=== PATIENT | male | born 1955 | race Caucasian/White ===

== ENCOUNTER 2023-05-26 13:44 | Outpatient (OUT) | payer MEDICARE, SELFPAY ==
[2023-05-26 16:26] LABS: INR 1.09; Partial Thromboplastin Time 32.7 sec (22.3-36.2); Prothrombin Time 11.5 sec (9.0-11.6)
== END 2023-05-26 13:45 | disposition home or self-care (01) ==
LOC: PST 13:49
PROVIDERS: PCP Family Medicine; Visit Provider Urology
DX: Z01.812 Encounter for preprocedural laboratory examination (principal); Z01.810 Encounter for preprocedural cardiovascular examination; N20.1 Calculus of ureter; I10 Essential (primary) hypertension; Z79.01 Long term (current) use of anticoagulants; I25.2 Old myocardial infarction
CPT/HCPCS: 80048; 85610; 85730

== ENCOUNTER 2023-05-27 10:38 | Day surgery (SDC) | payer MEDICARE, SELFPAY ==
[2023-05-26 14:38] VITALS: BP 109/66; PULSE 55; RESP 16; TEMP 36.4; O2SAT 95; BMI 34.9
[2023-05-27 11:06] VITALS: BMI 34.2
== END 2023-05-27 11:40 | disposition home or self-care (01) ==
PROVIDERS: PCP Family Medicine; Visit Provider Urology
PROC: (CPT 52356; principal; 2023-05-27 12:30)
DX: N20.1 Calculus of ureter (principal); Z53.8 Procedure and treatment not carried out for other reasons; I10 Essential (primary) hypertension; M19.90 Unspecified osteoarthritis, unspecified site; N40.1 Benign prostatic hyperplasia with lower urinary tract symptoms; I25.2 Old myocardial infarction; Z79.899 Other long term (current) drug therapy; Z79.82 Long term (current) use of aspirin; I25.10 Atherosclerotic heart disease of native coronary artery without angina pectoris; E66.9 Obesity, unspecified; Z68.37 Body mass index [BMI] 37.0-37.9, adult; E78.5 Hyperlipidemia, unspecified
CPT/HCPCS: 52356; 36415

== ENCOUNTER 2023-06-07 13:00 | Outpatient (OUT) | payer MEDICARE, SELFPAY | END 2023-06-07 16:24 | disposition home or self-care (01) | LOC: PST 06-08 13:21 | PROVIDERS: PCP Family Medicine; Visit Provider Urology | DX: Z01.818 Encounter for other preprocedural examination (principal); N20.1 Calculus of ureter; I10 Essential (primary) hypertension; Z79.01 Long term (current) use of anticoagulants ==

== ENCOUNTER 2023-06-10 12:12 | Day surgery (SDC) | payer MEDICARE, SELFPAY ==
[2023-06-10] VITALS (13 sets, daily range): BP systolic 115–162; BP diastolic 78–94; PULSE 60–92; RESP 13–20; TEMP 36.5–37.3; O2SAT 92–96; BMI 34.3
[2023-06-10] MEDS: LACTATED RINGER'S SOLUTION 1,000 ML 50 ML IV (12:37)
[2023-06-10] MEDS: CEFAZOLIN SODIUM/DEXTROSE,ISO 1 GM/50 ML IV.SOLN IV (14:53)
--- NOTE | 2023-06-10 15:49 | P.URON_ITS ---
Urology Surgery Operative Note Operative Note Procedure Date: 06/10/23 Time Out Performed: yes Pre-op Diagnosis: distal right ureteral calculus retained Post-op Diagnosis: same as pre-op Procedures performed: #1. Cystoscopy. #2. Right rigid ureteral dilation. #3. Right ureteroscopy. #4. Holmium laser lithotripsy of dense right ureteral calculus. #5. Stone basket extraction. #6. Placement of 6 Lebanese variable length right ureteral stent Anesthesia: General-LMA Primary Surgeon: Frank Mcarthur Complications: none Estimated blood loss (mL): 5 Findings: #1. Very dense stone. Specimens: right distal ureteral calculus fragments Indications for Procedures: this gentleman has a 6 mm distal right ureteral calculus that he has been unable to pass. He now presents for cystoscopy, rigid dilation, ureteroscopy and laser and right stent placement. He has signed an informed consent for these procedures after all the risks were explained. He did obtain formal cardiac clearance preoperatively due to his significant cardiac history. Detailed description of Procedure: The patient was brought to the operating room and placed on the operating room table in the supine position. SCDs were placed on the lower extremities and turned on and functioning during the entire case. Timeout was done by all parties in the room. We all agreed upon the patient's identification and the planned procedures for this patient. Genn. anesthesia was then administered. The patient was then repositioned into the modified dorsal lithotomy position. All pressure points were satisfactorily padded. Genitalia were sterilely prepped and draped in usual fashion.I then started by passing a 22 Lebanese Olympus cystoscope per urethra and into the bladder. The anterior urethra was normal. The prostatic urethra showed bilobar obstruction. Careful panendoscopy in the bladder showed no evidence of any tumors or stones. While using fluoroscopy I could see a stone in the distal right ureter region. I then passed a Glidewire through the scope and cannulated the right ureter. Initially, the wire buckled numerous times but eventually I got it proximal to the stone and up into the kidney. I then used an 8 and 10 Lebanese rigid dilator to dilate the distal ureter. I could not dilate fully because the stone would not move. I then removed the cystoscope and then passed a semirigid ureteroscope adjacent to the wire through the urethra into the bladder and into the right ureter. I was able to get right up to the stone. I then passed a 365 ? holmium laser fiber through the scope and made contact with the stone. I then began doing laser lithotripsy at 6 W continuously. The stone slowly fragmented. Once I fragmented it into multiple pieces I then passed a 0 tip nitinol basket. I engaged several pieces and dumped them in the base of the bladder. I went up-and-down the ureter removing ureteral fragments of stone until the right ureter was free of all stone. The scope was then removed. I then backloaded the cystoscope over the wire and passed it into the bladder. I then slid a 6 Lebanese variable length right ureteral stent over the wire up into the kidney and removed the wire. The stent had good curls in the kidney and in the bladder. I then used the Ludei evacuator to get all the stone pieces from the base of the bladder out and these were sent for stone analysis. The bladder was drained of its contents and the scope was then removed. He was then transferred to a [facility] bed and wheeled to PACU in stable condition. He'll be discharged to home later today with a prescription for Vesicare 10 mg daily #20 and Keflex 500 mg daily #21. We'll get his stent out in 2-3 weeks.
[2023-06-10] MEDS: SOLIFENACIN SUCCINATE 10 MG TABLET PO (15:56)
--- NOTE | 2023-06-10 16:10 | PC.NURSE ---
Patient denies pain and is eating and drinking veery well.
--- NOTE | 2023-06-10 16:33 | PC.NURSE ---
Patient ate crackers and cookies and drank water in phase 1. Patient also urinated as well. denies any pain.
[2023-06-18 15:13] LABS: Calcium Oxalate Dihydrate 30 % (.); Calcium Oxalate Monohydrate 70 % (.); Size 3x3 mm (.)
== END 2023-06-10 16:46 | disposition home or self-care (01) ==
PROVIDERS: PCP Family Medicine; Visit Provider Urology
PROC: (CPT 52356; principal; 2023-06-10 14:20)
DX: N20.1 Calculus of ureter (principal); N40.1 Benign prostatic hyperplasia with lower urinary tract symptoms; M19.90 Unspecified osteoarthritis, unspecified site; I25.2 Old myocardial infarction; E78.00 Pure hypercholesterolemia, unspecified; I10 Essential (primary) hypertension; I51.9 Heart disease, unspecified; Z79.82 Long term (current) use of aspirin; Z79.899 Other long term (current) drug therapy
CPT/HCPCS: 52356; 76000; 82365; 99999; C1874; J2704

== ENCOUNTER 2025-01-11 09:46 | Outpatient (OUT) | payer MEDICARE, SELFPAY ==
--- NOTE | 2025-01-11 09:56 | XR_ITS ---
[facility] [place] [id number] Patient Name: FREDDIE HERNANDEZ MRN: [id number] date: 1955 Sex: M Assigned Patient Location: [facility] Current Patient Location: [facility] Accession/Order Number: [id number] Exam Date: 01/11/2025 11:23 Report Date: 01/11/2025 11:25 At the request of: CINDY LAW MD Procedure: XR chest 2V PA AND LATERAL CHEST: CLINICAL HISTORY: Preoperative clearance for renal procedure the patient with kidney stones COMPARISON: None There is no focal parenchymal consolidation, effusion or pneumothorax. The cardiac, hilar and mediastinal silhouettes are within normal limits. There is no vascular congestion. The visualized bony thorax is intact. . There is slight dextroscoliotic curvature and endplate spurring. XR/XR chest 2V IMPRESSION: NO ACUTE CARDIOPULMONARY ABNORMALITY. Impression dictated by: Bernadine Arora M.D.01/11/2025 11:25 AM Dictation Location: [place] [address] Electronically authenticated by: [id number] Y Date: 01/11/2025 11:25
--- NOTE | 2025-01-11 09:56 | ECG_ITS ---
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 Measurements Intervals [place] Rate: 53 P: NE: QRS: 3 QRSD: 112 T: 7 QT: 441 QTc: 417 Interpretive Statements SINUS RHYTHM WITH OCCASIONAL VENTRICULAR PREMATURE COMPLEXES MODERATE INTRAVENTRICULAR CONDUCTION DELAY [110+ ms QRS DURATION] BORDERLINE ECG No previous ECG available for comparison Electronically Signed On 01-11-2025 20:26:32 EDT by VANESSA DENNISON M.D.
--- NOTE | 2025-01-11 10:39 | P.GSHP_ITS ---
History of Present Illness History of Present Illness Chief complaint: Left kidney stone Narrative: Patient presents for presurgical testing. Please see HPI from Dr. Mcarthur dated January 03, 2025. Review of Systems ROS Narrative Please see ROS from Dr. Mcarthur dated January 03, 2025. [facility] Medical History (Updated 01/11/25 @ 10:24 by Simin Guerra NP) PVC (premature ventricular contraction) ?I49.3 - Ventricular premature depolarization (ICD-10) Knee pain ?M25.569 - Pain in unspecified knee (ICD-10) Panic attacks ?F41.0 - Panic disorder [episodic paroxysmal anxiety] (ICD-10) MADHURI on CPAP ?G47.33 - Obstructive sleep apnea (adult) (pediatric) (ICD-10) CAD (coronary artery disease) ?I25.10 - Atherosclerotic heart disease of [place] coronary artery without angina pectoris (ICD-10) COVID-19 ?U07.1 - COVID-19 (ICD-10) Kidney stones ?N20.0 - Calculus of kidney (ICD-10) Back pain ?M54.9 - Dorsalgia, unspecified (ICD-10) Arthritis ?M19.90 - Unspecified osteoarthritis, unspecified site (ICD-10) Anxiety ?F41.9 - Anxiety disorder, unspecified (ICD-10) Sleep apnea ?G47.30 - Sleep apnea, unspecified (ICD-10) Transient ischemic attack ?G45.9 - Transient cerebral ischemic attack, unspecified (ICD-10) Ureteral stone (2022) ?N20.1 - Calculus of ureter (ICD-10) Seasonal allergies ?J30.2 - Other seasonal allergic rhinitis (ICD-10) Cataract ?H26.9 - Unspecified cataract (ICD-10) Hiatal hernia ?K44.9 - Diaphragmatic hernia without obstruction or gangrene (ICD-10) Myocardial infarction (1996) ?I21.9 - Acute myocardial infarction, unspecified (ICD-10) High cholesterol ?E78.00 - Pure hypercholesterolemia, unspecified (ICD-10) Surgical History (Updated 01/09/25 @ 10:39 by Simin Guerra NP) S/P cystoscopy with ureteral stent placement (06/10/23) ?Z96.0 - Presence of urogenital implants (ICD-10) History of arthroscopy of knee (2019) ?Z98.890 - Other specified postprocedural states (ICD-10) History of spinal surgery ?Z98.890 - Other specified postprocedural states (ICD-10) History of arthroplasty of knee ?Z96.659 - Presence of unspecified artificial knee joint (ICD-10) History of colonoscopy ?Z98.890 - Other specified postprocedural states (ICD-10) History of heart artery stent ?Z95.5 - Presence of coronary angioplasty implant and graft (ICD-10) Family History (Updated 06/10/23 @ 12:24 by Lucero Daniels) Other Family history of coronary artery disease Family history of emphysema Family history of hypertension Family history of myocardial infarction Family history of throat cancer Social History (Updated 05/27/23 @ 11:04 by Lucero Daniels) Within the past year, how often did you have a drink containing alcohol: monthly or less Smoking status: Never smoker Non-prescribed substance use: denies use Previous occupational history: RETIRED Highest level of school completed/degree received: Associate degree: occupational, technical, vocational program Meds Home Medications and Allergies Home Medications ?Medication ?Instructions ?Recorded ?Confirmed ?Type aspirin 81 mg capsule 162 mg PO DAILY 05/26/23 01/11/25 History celecoxib 200 mg capsule (Celebrex) 200 mg PO BID 05/26/23 01/11/25 History evolocumab 420 mg/3.5 mL 140 mg subcut .[id number] 05/26/23 01/11/25 History subcutaneous wearable injector (Repatha Pushtronex) omega-3 fatty acids 300 mg capsule 300 mg PO DAILY 05/26/23 01/11/25 History sertraline 50 mg tablet (Zoloft) 75 mg PO DAILY 05/26/23 01/11/25 History turmeric 400 mg capsule 400 mg PO DAILY 01/11/25 01/11/25 History Allergies Allergy/AdvReac Type Severity Reaction Status Date / Time No Known Drug Allergies Allergy Verified 01/11/25 10:10 Exam Narrative Exam Narrative: Constitutional: Awake, alert, comfortable, well-appearing, nontoxic, interactive, vital signs as charted Head: Normocephalic, atraumatic Neck: Supple, normal appearance, normal range of motion, no meningeal signs, no lymphadenopathy Respiratory: No respiratory distress, breath sounds clear Cardiovascular: Bradycardic rate, irregular rhythm Abdomen: Nontender, normal bowel sounds, soft, no CVA tenderness Musculoskeletal: Normal gait, no swelling or edema Skin: No rashes or induration, no lesions, only visible skin inspected Neuro: No neurological deficits, normal sensation Psychiatric: Oriented ?3, normal affect Assessment and Plan Assessment and Plan (1) Kidney stones: Plan Left ESWL scheduled with Dr. Mcarthur January 25, 2025.
[2025-01-11 10:55] LABS: Basophils Percent Auto 0.8 % (0.2-2.0); Eosinophils Absolute Auto 0.1 10^3/uL (0.0-0.7); Eosinophils Percent Auto 1.4 % (0.9-7.0); Hematocrit 46.9 % (42.0-54.0); Hemoglobin 16.4 g/dL (14.0-18.0); Immature Granulocytes Abs Auto 0.01 10^3/uL (0.00-0.03); Immature Granulocytes Pct Auto 0.2 % (0.0-0.5); Lymphocytes Absolute Auto 1.5 10^3/uL (1.2-3.8); Lymphocytes Percent Auto 29.5 % (20.5-60.0); Mean Corpuscular Hemoglobin 31.8 pg (25.9-34.0); Mean Corpuscular Volume 91.1 fL (80.0-94.0); Mean Platelet Volume 9.7 fL (9.5-13.5); Monocytes Absolute Auto 0.5 10^3/uL (0.3-0.8); Monocytes Percent Auto 9.6 % (1.7-12.0); Neutrophils Percent Auto 58.5 % (43.0-75.0); Platelet Count 163 10^3/uL (150-450); Red Blood Count 5.15 10^6/uL (4.70-6.10); Red Cell Distribution Width 12.7 % (11.0-15.0); White Blood Count 5.1 10^3/uL (4.0-11.0)
[2025-01-11 11:12] LABS: INR 1.12; Partial Thromboplastin Time 31.8 sec (22.3-36.2); Prothrombin Time 11.7 sec (9.0-11.6)
[2025-01-11 11:47] LABS: Anion Gap 13.7; BUN Creatinine Ratio 19.6; Calcium 8.9 mg/dL (8.5-10.1); Carbon Dioxide 25.9 mmol/L (21.0-32.0); Chloride 103 mmol/L (98-107); Estimated GFR (African America >60 (>=60 mL/min/1.73m^2); Estimated GFR (Non-African Ame >60 (>=60 mL/min/1.73m^2); Glucose 104 mg/dL (74-106); Potassium 4.6 mmol/L (3.5-5.1); Sodium 138 mmol/L (136-145)
== END 2025-01-11 09:47 | disposition home or self-care (01) ==
PROVIDERS: PCP Family Medicine; Visit Provider Urology
DX: Z01.810 Encounter for preprocedural cardiovascular examination (principal); Z01.812 Encounter for preprocedural laboratory examination; Z01.818 Encounter for other preprocedural examination; N20.0 Calculus of kidney
CPT/HCPCS: 71046; 80048; 85025; 85610; 85730; 93005; G0463

== ENCOUNTER 2025-01-25 06:40 | Day surgery (SDC) | payer MEDICARE, SELFPAY ==
[2025-01-11 10:35] VITALS: BP 154/69; PULSE 51; TEMP 36.2; O2SAT 96; BMI 35.7
[2025-01-25] VITALS (9 sets, daily range): BP systolic 138–167; BP diastolic 67–93; PULSE 46–61; TEMP 36.2; O2SAT 93–97; BMI 35.4
[2025-01-25] MEDS: LACTATED RINGER'S SOLUTION 1,000 ML 50 ML IV (07:40)
[2025-01-25] MEDS: CEFAZOLIN SODIUM 2 GM/50 ML D5W PREMIX IV (08:05)
--- NOTE | 2025-01-25 08:35 | PM.URSON ---
Urology Surgery Operative Note Operative Note Procedure Date: 01/25/25 Time Out Performed: yes Pre-op Diagnosis: Left nephrolithiasis Post-op Diagnosis: same as pre-op Procedures performed: 1. Left ESWL. Anesthesia: General-LMA Primary Surgeon: Frank Mcarthur Complications: None Estimated blood loss (mL): 0 Findings: Large left lower pole stone Specimens: None Drains: None Indications for Procedures: This gentleman has recurrent left nephrolithiasis. His stone is about a centimeter in size. He now presents for left ESWL. He has signed an informed consent after risks were explained. Some of these risks include bleeding, perinephric hematoma, infection and anesthesia to name a few. Detailed description of Procedure: The patient was brought to the Operating Room and placed on Siemens electromagnetic lithotripsy treatment table in the supine position. SCDs were placed on their lower extremities and turned on and functioning during the entire case. Timeout was done by all parties in the room. We all agreed upon the patient's identification and the planned procedures for this patient. General Anesthesia was then administered via LMA. Treatment head was then brought to the patient's correct side. While using flourscopy the left sided stone was identified and lined up into the crosshairs. We then began applying shocks. We started at power level 2.0 and increased to a maximum power level of 3.5. Intermittent fluoroscopy revealed fairly early fragmentation. We applied a total of 2000 shocks and had 100% fragmentation. The last fluoroscopic image revealed no evidence of any formed stone remaining. The procedure was terminated. He was then transferred to a [facility] bed and wheeled to PACU in stable condition.
--- NOTE | 2025-01-25 08:54 | PC.NURSE ---
ABRASION AND REDNESS NOTED ON LEFT FLANK AREA
== END 2025-01-25 10:16 | disposition home or self-care (01) ==
PROVIDERS: PCP Family Medicine; Visit Provider Urology
PROC: (CPT 50590; principal; 2025-01-25 08:00)
DX: N20.0 Calculus of kidney (principal); Z87.442 Personal history of urinary calculi; M19.90 Unspecified osteoarthritis, unspecified site; I25.2 Old myocardial infarction; N40.0 Benign prostatic hyperplasia without lower urinary tract symptoms; I25.10 Atherosclerotic heart disease of native coronary artery without angina pectoris; I10 Essential (primary) hypertension; E78.5 Hyperlipidemia, unspecified; F32.A Depression, unspecified; Z79.82 Long term (current) use of aspirin; Z95.5 Presence of coronary angioplasty implant and graft; G47.33 Obstructive sleep apnea (adult) (pediatric); Z86.73 Personal history of transient ischemic attack (TIA), and cerebral infarction without residual deficits; K44.9 Diaphragmatic hernia without obstruction or gangrene
CPT/HCPCS: 50590; 36415; 74018; J0690; J1100; J1885; J2250; J2405; J2704